=== PATIENT | female | born 1975 | race Caucasian/White ===

== ENCOUNTER 2022-07-30 16:39 | Emergency (ER) | payer OTHER, SELFPAY ==
--- NOTE | 2022-07-30 16:41 | ED.URI ---
HPI - URI/Sore Throat General Chief Complaint: Upper Respiratory Infection Stated Complaint: aches fever headache Time Seen by Provider: 07/30/22 16:41 Source: patient and RN notes reviewed History of Present Illness HPI Narrative: Patient is a 47-year-old female who presents the urgent care with complaints of body aches, fever and headache. Patient states that started last night and her daughter was positive for strep yesterday in our facility. Patient states she took ibuprofen. Denies of any other acute complaints. No acute distress noted. Patient aware of the plan of care. Some parts of this dictation were generated by voice recognition software and may contain typographical and/or grammatical inaccuracies. Related Data Home Medications Medication Instructions Recorded Confirmed dextroamphetamine-amphetamine 15 15 mg PO DAILY 07/30/22 07/30/22 mg tablet tretinoin 0.025 % topical cream 0.025 applic topical DAILY 07/30/22 07/30/22 Allergies Allergy/AdvReac Type Severity Reaction Status Date / Time No Known Allergies Allergy Verified 07/30/22 16:53 Review of Systems Review of Systems: CONSTITUTIONAL: Reports of chills EYES: Denies visual changes, redness, or discharge. ENT: Denies rhinorrhea, congestion, or otalgia. Reports of sore throat CARDIOVASCULAR: Denies chest pain, palpitations, or edema. RESPIRATORY: Denies cough or dyspnea. GASTROINTESTINAL: Denies abdominal pain, nausea, vomiting, or diarrhea. GENITOURINARY: Denies dysuria or hematuria. SKIN: Denies rash or itching. MUSCULOSKELETAL: Denies back pain, joint pain. Reports of body aches NEUROLOGIC: Reports of headache All other systems reviewed are negative, except as documented in HPI. PMFSH Social History Social History Smoking status: Never smoker Second hand tobacco smoke exposure: No Alcohol intake: current Comments At the time of my signature, I reviewed and agree with the nursing past medical, surgical, social, and family history. There is no relevant family history pertinent to the patient complaint. Exam Narrative: GENERAL: This is a well-nourished, well-developed patient, in no apparent distress. HEAD: normocephalic, atraumatic. EYES: PERRL. Sclera clear/white. Vision is grossly intact. EARS: External ears normal, auditory canals clear and without drainage, TMs normal without perforation. Hearing grossly intact. NOSE: External nose normal with no obvious nasal discharge, nares without redness, no rhinorrhea. THROAT: Mucous membranes moist, mild erythema noted posterior pharynx with moderate postnasal drainage NECK: Neck supple, non-tender without lymphadenopathy CARDIOVASCULAR: Regular rate and rhythm without murmurs, gallops, or rubs. RESPIRATORY: Clear to auscultation. Breath sounds equal bilaterally. No wheezes, rales, or rhonchi. SKIN: warm, intact with no suspicious lesions or rash, good texture and turgor. NEURO: awake, alert, and oriented to person, place and time. There were no obvious focal neurologic abnormalities. EXTREMITIES: No clubbing, cyanosis, or edema. Course Course Level of Care: Express Care Visit Vital Signs Vital signs: Vital Signs Temperature 98.5 F 07/30/22 16:44 Pulse Rate 106 H 07/30/22 16:44 Respiratory Rate 16 07/30/22 16:44 Blood Pressure 106/56 L 07/30/22 16:44 Pulse Oximetry 100 07/30/22 16:44 Oxygen Delivery Room Air 07/30/22 16:44 Temperature 98.5 F 07/30/22 16:44 Pulse Rate 106 H 07/30/22 16:44 Respiratory Rate 16 07/30/22 16:44 Blood Pressure 106/56 L 07/30/22 16:44 Pulse Oximetry 100 07/30/22 16:44 Oxygen Delivery Room Air 07/30/22 16:44 Reviewed MDM - URI/Sore Throat MDM Narrative Medical decision making narrative: Reviewed lab results with the patient. She is aware that strep swab was negative. However due to your positive exposure we will treat with antibiotics. Advised the patient to call the facility and check on her culture resul
[2022-07-30 16:44] VITALS: BP 106/56; PULSE 106; RESP 16; TEMP 36.9; O2SAT 100
== END 2022-07-30 17:22 | disposition home or self-care (01) ==
PROVIDERS: Emergency Provider Nurse Practitioner Family
DX: J02.9 Acute pharyngitis, unspecified (principal); Z20.818 Contact with and (suspected) exposure to other bacterial communicable diseases
CPT/HCPCS: 87081; 87880; 99213; G0463